=== PATIENT | male | born 2000 | race African-American/Black ===

== ENCOUNTER 2024-08-28 12:46 | Outpatient (CLI) | payer OTHER, SELFPAY ==
[2024-08-28 23:10] LABS: Chlamydia DNA Amplified* NOT DETECTED (No Detected); GC DNA Amplified* NOT DETECTED (No Detected)
== END 2024-08-28 12:47 | disposition home or self-care (01) ==
DX: Z11.3 Encounter for screening for infections with a predominantly sexual mode of transmission (principal); Z11.51 Encounter for screening for human papillomavirus (HPV); Z11.59 Encounter for screening for other viral diseases; Z11.4 Encounter for screening for human immunodeficiency virus [HIV]
CPT/HCPCS: 86592; 86703; 86706; 86803; 87340; 87491; 87591